=== PATIENT | male | born 1980 | race Caucasian/White ===

== ENCOUNTER 2017-12-09 15:54 | Emergency (ER) | payer SELFPAY ==
[~2017-12-09] VITALS: Ht 182.9 cm; Wt 86.4 kg
[2017-12-09 16:02] VITALS: Ht 182.9 cm; Wt 86.4 kg
[2017-12-09] MEDS ORDERED: CLEOCIN HCL300 MG PO (16:27)
[2017-12-09] MEDS ORDERED: NORCO 7.5/325 T1 TA1 PO (16:27)
[2017-12-09 16:35] VITALS: BP 144/97
== END 2017-12-09 16:35 | disposition home or self-care (01) ==
LOC: D.ER 15:54
DX: K04.7 Periapical abscess without sinus (principal); S02.5XXA Fracture of tooth (traumatic), initial encounter for closed fracture; X58.XXXA Exposure to other specified factors, initial encounter; Y93.89 Activity, other specified; Y92.89 Other specified places as the place of occurrence of the external cause; K02.9 Dental caries, unspecified

== ENCOUNTER 2017-12-16 18:33 | Emergency (ER) | payer SELFPAY ==
[~2017-12-16] VITALS: Ht 182.9 cm; Wt 81.8 kg
[~2017-12-16 18:33] MED LIST: CLEOCIN HCL300 MG PO; NORCO 7.5/325 T1 TA1 PO
[2017-12-16 18:41] VITALS: Ht 182.9 cm; Wt 81.8 kg
[2017-12-16] MEDS ORDERED: AMOXICILLIN875 MG PO (19:13)
[2017-12-16] MEDS ORDERED: TORADOL10 MG PO (19:13)
[2017-12-16 20:07] VITALS: BP 140/98
== END 2017-12-16 20:08 | disposition home or self-care (01) ==
LOC: D.ER 18:33
DX: K08.89 Other specified disorders of teeth and supporting structures (principal); K04.7 Periapical abscess without sinus

== ENCOUNTER 2018-01-02 20:16 | Emergency (ER) | payer SELFPAY ==
[~2018-01-02] VITALS: Ht 182.9 cm; Wt 81.8 kg
[~2018-01-02 20:16] MED LIST changes: +AMOXICILLIN875 MG PO; +TORADOL10 MG PO
[2018-01-02 20:45] VITALS: Ht 182.9 cm; Wt 81.8 kg
[2018-01-02] MEDS ORDERED: ZPAK PO (22:24)
[2018-01-02] MEDS ORDERED: TYLENOL W/CODEI1 TAB PO (22:26)
[2018-01-02 23:19] VITALS: BP 153/95
== END 2018-01-02 22:35 | disposition home or self-care (01) ==
LOC: D.ER 20:16
DX: J40 Bronchitis, not specified as acute or chronic (principal); R09.89 Other specified symptoms and signs involving the circulatory and respiratory systems; F17.200 Nicotine dependence, unspecified, uncomplicated